=== PATIENT | female | born 1960 | race Caucasian/White ===

== ENCOUNTER 2017-09-28 11:23 | Emergency (ER) | payer MEDICARE ==
[~2017-09-28] VITALS: Ht 165.1 cm; Wt 68.2 kg
[2017-09-28 11:27] VITALS: Ht 165.1 cm; Wt 68.2 kg
[2017-09-28] MEDS ORDERED: NEURONTIN 300300 MG PO (11:29)
[2017-09-28] MEDS ORDERED: SINEMET 10/101 UDTAB PO (11:30)
[2017-09-28] MEDS ORDERED: ALTACE2.5 MG PO (11:31)
[2017-09-28 12:10] LABS: BASOPHILS 0 % (0-2); EOSINOPHILS 0.4 % (0-7); HEMATOCRIT 34.5 % (36.0-48.0); HEMOGLOBIN 11.8 g/dL (12-16); IMMATURE GRANULOCYTES 0.3 % (0-5); LYMPHOCYTES 13.5 % (15-50); MCH 32.7 pg (26.0-34.0); MCHC 34.2 g/dL (31.0-37.0); MCV 95.6 fL (80.0-100.0); MEAN PLATELET VOLUME 10.4 fL (7.4-10.4); MONOCYTES 6.5 % (2-11); NEUTROPHILS 79.3 % (40-80); PLATELET COUNT 117 10x3/uL (130-400); RBC 3.61 10x6/uL (4.00-5.40); RDW 12.9 % (11.5-14.5); WBC 11.3 10x3/uL (4.8-10.8)
[2017-09-28] MEDS ORDERED: CLEOCIN HCL300 MG PO (12:12)
[2017-09-28 12:58] LABS: ALBUMIN 2.8 g/dL (3.4-5.0); ALKALINE PHOSPHATASE 130 U/L (46-116); ALT (SGPT) 15 U/L (10-68); BILIRUBIN - TOTAL 0.64 mg/dL (0.2-1.3); CALC OSMOLALITY 261 mosm/kg (275-300); CALCIUM 8.7 mg/dL (8.5-10.1); CARBON DIOXIDE 29.9 mmol/L (21.0-32.0); CHLORIDE - SERUM 95 mmol/L (98-107); CREATININE - SERUM 0.7 mg/dL (0.6-1.3); GLUCOSE 153 mg/dL (74-106); POTASSIUM - SERUM 3.2 mmol/L (3.5-5.1); PROTEIN - SERUM 8.1 g/dL (6.4-8.2); SODIUM 129 mmol/L (136-145); UREA NITROGEN 12 mg/dL (7-18); eGFR NON AFRICAN AMERICAN > 90 mL/min (90-120)
[2017-09-28 15:11] VITALS: BP 110/68
== END 2017-09-28 15:12 | disposition left against medical advice (07) ==
LOC: D.ER 11:23
PROVIDERS: Emergency Medicine
DX: L03.114 Cellulitis of left upper limb (principal); G20 Parkinson's disease; F17.200 Nicotine dependence, unspecified, uncomplicated